=== PATIENT | female | born 1935 | race Caucasian/White ===

== ENCOUNTER 2017-08-08 11:19 | Inpatient (IN) | payer OTHER, MEDICAID, MEDICARE ==
[~2017-08-08] VITALS: Ht 167.6 cm; Wt 158.0 kg
[2017-08-08] VITALS (8 sets, daily range): BP systolic 118–151; BP diastolic 48–69; PULSE 51–72; RESP 18–26; TEMP 97–97.7; O2SAT 95–100
[~2017-08-08 11:19] MED LIST: ASPI-183 PO; FURO80TA PO; LISI10TA3 PO; LORA10TA PO
--- NOTE | 2017-08-08 12:12 | PD ---
HPI Chief Complaint: GI Complaint Time Seen by Provider: 11:41 Travel History International Travel<30 days: No Contact w/Intl Traveler<30days: No Traveled to known affect area: No History of Present Illness HPI 81-year-old female presents emergency department via [facility] for evaluation of dark , tarry stools with occasional bright red bleeding per rectum associated with lower abdominal pain that started approximately 4 days ago. Patient is coming from home in an older adult facility. Says that she has dark stools and when she wipes, has bright red blood on the toilet paper. Says she has lower abdominal pain bilaterally described as aching and "gas pain" without radiation. States the pain is mild to moderate. She has no history of this pain previously. Patient denies dizziness, lightheadedness, heart palpitations. Says in the last 4 days she has had some exertional chest pain associated with shortness of breath and radiation to the right arm and hand. Patient follows Dr. Medina and her last appointment was 1 year ago. Says she was prescribed nitro and a "vasodilator" but states she has not taken his vasodilator because she "does not think she needs it". She has a history of lymphedema, congestive heart failure. She uses oxygen 2 L/min 20 hours a day for COPD. PFSH Past Medical History Cardiovascular Problems: Yes Congestive Heart Failure: Yes COPD: Yes Hypertension: Yes Respiratory: Yes Integumentary: Yes (PSORIASIS) ?: Not Past Surgical History Section: Yes Hysterectomy: Yes Tonsillectomy: Yes Social History Alcohol Use: No Tobacco Use: No Substance Use: No Allergies-Medications (Allergen,Severity, Reaction): Coded Allergies: ciprofloxacin (Unverified Allergy, Mild, Blurred Vision, 12/27/16) monosodium glutamate (Unverified Allergy, Unknown, 12/27/16) Reported Meds & Prescriptions Reported Meds & Active Scripts Active Reported Aspirin 325 Mg Tab 325 Mg PO DAILY Lisinopril 10 Mg Tab 10 Mg PO DAILY Furosemide 80 Mg Tab 40 Mg PO DAILY Review of Systems Except as stated in HPI: all other systems reviewed are Neg Physical Exam Narrative GENERAL: Well developed, well-nourished no apparent distress SKIN: Focused skin assessment warm/dry. HEAD: Atraumatic. Normocephalic. EYES: Pupils equal and round. No scleral icterus. No injection or drainage. ENT: No nasal bleeding or discharge. Mucous membranes pink and moist. NECK: Trachea midline. No JVD. CARDIOVASCULAR: Regular rate and rhythm. No murmur appreciated. RESPIRATORY: No accessory muscle use. Clear to auscultation. Breath sounds equal bilaterally. GASTROINTESTINAL: Abdomen soft, non-tender, nondistended. Hepatic and splenic margins not palpable. MUSCULOSKELETAL: No obvious deformities. No clubbing. No cyanosis. No edema. NEUROLOGICAL: Awake and alert. No obvious cranial nerve deficits. Motor grossly within normal limits. Normal speech. PSYCHIATRIC: Appropriate mood and affect; insight and judgment normal. Data Data Last Documented VS Vital Signs Date Time Temp Pulse Resp B/P (MAP) Pulse Ox O2 Delivery O2 Flow Rate FiO2 08/08/17 14:50 97.7 53 20 132/58 08/08/17 14:29 100 Orders Orders Complete Blood Count With Diff (08/08/17 11:46) Comprehensive Metabolic Panel (08/08/17 11:46) Lipase (08/08/17 11:46) Prothrombin Time / Inr (Pt) (08/08/17 11:46) Act Partial Throm Time (Ptt) (08/08/17 11:46) Urinalysis - C+S If Indicated (08/08/17 11:46) Iv Access Insert/Monitor (08/08/17 11:46) Ecg Monitoring (08/08/17 11:46) Oximetry (08/08/17 11:46) Electrocardiogram (08/08/17 11:46) Ckmb (Isoenzyme) Profile (08/08/17 11:46) Troponin I (08/08/17 11:46) B-Type Natriuretic Peptide (08/08/17 11:46) Type And Screen (08/08/17 12:20) Red Blood Cells (Rbc) (08/08/17 12:30) Blood Product Administration (08/08/17 12:30) Sodium Chlor 0.9% 250 Ml Inj (Ns 250 Ml (08/08/17 12:30) Calcium Gluconate Inj (Calcium Gluconate (08/08/17 13:15) Sodium Chlor 0.9% 1000 Ml Inj (Ns 1000 M (08/08/17 13:15) Ct Abd/Pel W/O Iv Contrast (08/08/17 ) Urine Culture (08/08/17 12:50) Chest, Single Ap (08/08/17 ) Sodium Polysty Sulfate Liq (Kayexalate L (08/08/17 15:15) Admit Order (Ed Use Only) (08/08/17 ) Admit To Inpatient (08/08/17 ) Vital Signs (Adult) Q4H (08/08/17 15:03) Activity Oob With Assistance (08/08/17 15:03) Body Stylist / Telemetry .CONTINUOUS (08/08/17 15:03) Sodium Chloride 0.9% Flush (Ns Flush) (08/08/17 15:15) Sodium Chloride 0.9% Flush (Ns Flush) (08/08/17 21:00) Basic Metabolic Panel (Bmp) (08/09/17 06:00) Complete Blood Count With Diff (08/09/17 06:00) Pt Request For Service (08/08/17 15:03) Case Management Consult (08/08/17 15:03) Naloxone Inj (Narcan Inj) (08/08/17 15:15) Inpatient Certification (08/08/17 ) Labs Laboratory Tests Test 08/08/17 12:06 08/08/17 12:50 White Blood Count 4.8 TH/MM3 Red Blood Count 2.16 MIL/MM3 Hemoglobin 5.4 GM/DL Hematocrit 17.3 % Mean Corpuscular Volume 80.1 FL Mean Corpuscular Hemoglobin 25.2 PG Mean Corpuscular Hemoglobin Concent 31.4 % Red Cell Distribution Width 21.9 % Platelet Count 128 TH/MM3 Mean Platelet Volume 9.1 FL Neutrophils (%) (Auto) 50.8 % Lymphocytes (%) (Auto) 31.5 % Monocytes (%) (Auto) 13.2 % Eosinophils (%) (Auto) 3.2 % Basophils (%) (Auto) 1.3 % Neutrophils # (Auto) 2.4 TH/MM3 Lymphocytes # (Auto) 1.5 TH/MM3 Monocytes # (Auto) 0.6 TH/MM3 Eosinophils # (Auto) 0.2 TH/MM3 Basophils # (Auto) 0.1 TH/MM3 CBC Comment DIFF FINAL Differential Comment Prothrombin Time 14.7 SEC Prothromb Time International Ratio 1.5 RATIO Activated Partial Thromboplast Time 33.9 SEC Blood Urea Nitrogen 67 MG/DL Creatinine 2.45 MG/DL Random Glucose 105 MG/DL Total Protein 7.9 GM/DL Albumin 2.7 GM/DL Calcium Level 8.9 MG/DL Alkaline Phosphatase 168 U/L Aspartate Amino Transf (AST/SGOT) 26 U/L Alanine Aminotransferase (ALT/SGPT) 13 U/L Total Bilirubin 0.6 MG/DL Sodium Level 141 MEQ/L Potassium Level 6.1 MEQ/L Chloride Level 110 MEQ/L Carbon Dioxide Level 23.1 MEQ/L Anion Gap 8 MEQ/L Estimat Glomerular Filtration Rate 19 ML/MIN Total Creatine Kinase 36 U/L Troponin I 0.02 NG/ML B-Type Natriuretic Peptide 355 PG/ML Lipase 172 U/L Urine Color YELLOW Urine Turbidity HAZY Urine pH 5.5 Urine Specific [place] 1.011 Urine Protein TRACE mg/dL Urine Glucose (UA) NEG mg/dL Urine Ketones NEG mg/dL Urine Occult Blood LARGE Urine Nitrite NEG Urine Bilirubin NEG Urine Urobilinogen LESS THAN 2.0 MG/DL Urine Leukocyte Esterase NEG Urine RBC 2 /hpf Urine WBC 1 /hpf Urine Squamous Epithelial Cells 2 /hpf Urine Amorphous Sediment OCC Urine Bacteria MOD /hpf Urine Hyaline Casts 12 /lpf Urine Mucus FEW /lpf Microscopic Urinalysis Comment CULTURE INDICATED MDM Medical Decision Making Medical Screen Exam Complete: Yes Emergency Medical Condition: Yes Differential Diagnosis Diverticulitis, peptic ulcer disease, diverticulosis, medication noncompliance, rectal bleeding Narrative Course 81-year-old female presents emergency department for evaluation of melena and hematochezia for approximately 4 days. She says she believes this started because of medication that she started approximately 2 weeks ago. States that she only took about 7 days of this medication because she had some melena at that time. Says the day after she stopped this medication her stools turn normal again. Says that she had the bleeding began again 4 days ago. Her son, Fausto assisted with a history. States she has chronic chest pain, followed by her PCP and cardiology. She does not take her isosorbide or nitro as recommended. Says she is followed by nephrology for her anemia and there was mention of a 'blood cancer'. Her chief mechanical officer is Dr. Acosta. Her bioinformatics research technician is Dr. Medina. Her primary care physician is Dr. Pineda with [facility]. EKG shows bradycardia without STEMI changes. Previous EKG in 2016 with bradycardia with A fib. Labs are significant for H/H5 5.4/17.3, significantly decreased since the labs in 2016 Potassium 6.1 BUN/creatinine 67/2.45, increased since labs in 2016 from baseline 45/1.5 Negative troponin. BNP 355, increased from 104. INR 1.5. Note that patient is not on Coumadin or any other anticoagulants. Calcium gluconate 1gm for hyperkalemia. 1L NS IVF bolus. 2 units PRBCs for correction of anemia. Pt had a BM in the ED that was dark red blood. No obvious stool present. Rectal exam deferred for concern of worsening bleeding. Anal exam shows external hemorrhoids without obvious bleeding or thrombosis. I spoke with Dr. Duran who recommended EGD and colonoscopy tomorrow. Prep today. Will admit for severe anemia with melena and hematochezia. Consult nephrology. Consider hematology consult. Diagnosis Primary Impression: Severe anemia Additional Impressions: Hematochezia Thrombocytopenia Nonadherence to medication Admitting Information Admitting Physician Requests: Admit Condition: Stable Jody Hernandez Aug 08, 2017 12:12
[2017-08-08 12:24] LABS: AUTOMATED NEUTROPHIL # 2.4 TH/MM3 (1.8-7.7); BASOPHIL # 0.1 TH/MM3 (0-0.2); BASOPHIL % 1.3 % (0.0-2.0); EOSINOPHIL # 0.2 TH/MM3 (0-0.4); EOSINOPHIL % 3.2 % (0.0-4.0); LYMPH % 31.5 % (9.0-44.0); LYMPHOCYTE # 1.5 TH/MM3 (1.0-4.8); MEAN CELL VOLUME 80.1 FL (80.0-100.0); MEAN CORPUSCULAR HEMOGLOBIN 25.2 PG (27.0-34.0); MEAN CORPUSCULAR HGB CONC 31.4 % (32.0-36.0); MEAN PLATELET VOLUME 9.1 FL (7.0-11.0); MONO % 13.2 % (0.0-8.0); MONOCYTE # 0.6 TH/MM3 (0-0.9); NEUT % 50.8 % (16.0-70.0); PLATELET COUNT 128 TH/MM3 (150-450); RED BLOOD COUNT 2.16 MIL/MM3 (4.00-5.30); RED CELL DISTRIBUTION WIDTH 21.9 % (11.6-17.2); WHITE BLOOD COUNT 4.8 TH/MM3 (4.0-11.0)
[2017-08-08 12:27] LABS: HEMATOCRIT 17.3 % (35.0-46.0); HEMOGLOBIN 5.4 GM/DL (11.6-15.3)
[2017-08-08] MEDS ORDERED: SODIUM CHLOR 0.9% 250 ML INJ 250 ML IV ONE (12:30)
--- NOTE | 2017-08-08 12:32 | PD ---
Data Data Last Documented VS Vital Signs Date Time Temp Pulse Resp B/P (MAP) Pulse Ox O2 Delivery O2 Flow Rate FiO2 08/08/17 14:50 97.7 53 20 132/58 08/08/17 14:29 100 Orders Orders Complete Blood Count With Diff (08/08/17 11:46) Comprehensive Metabolic Panel (08/08/17 11:46) Lipase (08/08/17 11:46) Prothrombin Time / Inr (Pt) (08/08/17 11:46) Act Partial Throm Time (Ptt) (08/08/17 11:46) Urinalysis - C+S If Indicated (08/08/17 11:46) Iv Access Insert/Monitor (08/08/17 11:46) Ecg Monitoring (08/08/17 11:46) Oximetry (08/08/17 11:46) Electrocardiogram (08/08/17 11:46) Ckmb (Isoenzyme) Profile (08/08/17 11:46) Troponin I (08/08/17 11:46) B-Type Natriuretic Peptide (08/08/17 11:46) Type And Screen (08/08/17 12:20) B-Type Natriuretic Peptide (08/08/17 12:30) Red Blood Cells (Rbc) (08/08/17 12:30) Blood Product Administration (08/08/17 12:30) Sodium Chlor 0.9% 250 Ml Inj (Ns 250 Ml (08/08/17 12:30) Calcium Gluconate Inj (Calcium Gluconate (08/08/17 13:15) Sodium Chlor 0.9% 1000 Ml Inj (Ns 1000 M (08/08/17 13:15) Ct Abd/Pel W/O Iv Contrast (08/08/17 ) Urine Culture (08/08/17 12:50) Chest, Single Ap (08/08/17 ) Sodium Polysty Sulfate Liq (Kayexalate L (08/08/17 15:15) Admit Order (Ed Use Only) (08/08/17 ) Admit To Inpatient (08/08/17 ) Vital Signs (Adult) Q4H (08/08/17 15:03) Activity Oob With Assistance (08/08/17 15:03) Ict Trainer / Telemetry .CONTINUOUS (08/08/17 15:03) Sodium Chloride 0.9% Flush (Ns Flush) (08/08/17 15:15) Sodium Chloride 0.9% Flush (Ns Flush) (08/08/17 21:00) Basic Metabolic Panel (Bmp) (08/09/17 06:00) Complete Blood Count With Diff (08/09/17 06:00) Pt Request For Service (08/08/17 15:03) Case Management Consult (08/08/17 15:03) Naloxone Inj (Narcan Inj) (08/08/17 15:15) Inpatient Certification (08/08/17 ) Labs Laboratory Tests Test 08/08/17 12:06 08/08/17 12:50 White Blood Count 4.8 TH/MM3 Red Blood Count 2.16 MIL/MM3 Hemoglobin 5.4 GM/DL Hematocrit 17.3 % Mean Corpuscular Volume 80.1 FL Mean Corpuscular Hemoglobin 25.2 PG Mean Corpuscular Hemoglobin Concent 31.4 % Red Cell Distribution Width 21.9 % Platelet Count 128 TH/MM3 Mean Platelet Volume 9.1 FL Neutrophils (%) (Auto) 50.8 % Lymphocytes (%) (Auto) 31.5 % Monocytes (%) (Auto) 13.2 % Eosinophils (%) (Auto) 3.2 % Basophils (%) (Auto) 1.3 % Neutrophils # (Auto) 2.4 TH/MM3 Lymphocytes # (Auto) 1.5 TH/MM3 Monocytes # (Auto) 0.6 TH/MM3 Eosinophils # (Auto) 0.2 TH/MM3 Basophils # (Auto) 0.1 TH/MM3 CBC Comment DIFF FINAL Differential Comment Prothrombin Time 14.7 SEC Prothromb Time International Ratio 1.5 RATIO Activated Partial Thromboplast Time 33.9 SEC Blood Urea Nitrogen 67 MG/DL Creatinine 2.45 MG/DL Random Glucose 105 MG/DL Total Protein 7.9 GM/DL Albumin 2.7 GM/DL Calcium Level 8.9 MG/DL Alkaline Phosphatase 168 U/L Aspartate Amino Transf (AST/SGOT) 26 U/L Alanine Aminotransferase (ALT/SGPT) 13 U/L Total Bilirubin 0.6 MG/DL Sodium Level 141 MEQ/L Potassium Level 6.1 MEQ/L Chloride Level 110 MEQ/L Carbon Dioxide Level 23.1 MEQ/L Anion Gap 8 MEQ/L Estimat Glomerular Filtration Rate 19 ML/MIN Total Creatine Kinase 36 U/L Troponin I 0.02 NG/ML B-Type Natriuretic Peptide 355 PG/ML Lipase 172 U/L Urine Color YELLOW Urine Turbidity HAZY Urine pH 5.5 Urine Specific [place] 1.011 Urine Protein TRACE mg/dL Urine Glucose (UA) NEG mg/dL Urine Ketones NEG mg/dL Urine Occult Blood LARGE Urine Nitrite NEG Urine Bilirubin NEG Urine Urobilinogen LESS THAN 2.0 MG/DL Urine Leukocyte Esterase NEG Urine RBC 2 /hpf Urine WBC 1 /hpf Urine Squamous Epithelial Cells 2 /hpf Urine Amorphous Sediment OCC Urine Bacteria MOD /hpf Urine Hyaline Casts 12 /lpf Urine Mucus FEW /lpf Microscopic Urinalysis Comment CULTURE INDICATED MDM Supervised Visit with RAFFI: Yes Narrative Course I, Dr. Milner, have reviewed the advance practice practitioner's documentation and am in agreement, met with the patient face to face, made the diagnosis, and the medical decision making was done by me. *My assessment and Findings: Patient seen and examined by me in addition to Jody Hernandez, this is an 81-year-old female who looks extremely pale to me, as confirmed by hemoglobin testing of 5.4, I discussed the risk benefits competitions and alternatives of blood transfusion with her and she is agreeable for blood transfusion. Will be discussed with GI on-call as well as her supervisor instrument mechanics. Her potassium is running some higher may be due to some GI lysis. She will be given calcium chloride, liter of normal saline and I have suggested to the hospitalist that her potassium be repeated sometime this afternoon. Will hold insulin D50 therapy and Kayexalate therapy until discussing with consultants. There are no EKG changes consistent with hyperkalemia Diagnosis Primary Impression: Severe anemia Additional Impressions: Hematochezia Acute kidney injury Hyperkalemia Admitting Information Admitting Physician Requests: Admit Condition: Fausto Valerio MD Aug 08, 2017 12:32
[2017-08-08 12:33] LABS: PROTHROMBIN TIME - PATIENT 14.7 SEC (9.8-11.6)
[2017-08-08 12:34] LABS: INTERNATIONAL NORMALIZED RATIO 1.5 RATIO
[2017-08-08 12:51] LABS: ALBUMIN 2.7 GM/DL (3.4-5.0); AST (GOT) 26 U/L (15-37); BICARBONATE 23.1 MEQ/L (21.0-32.0); BLOOD UREA NITROGEN 67 MG/DL (7-18); CALCIUM 8.9 MG/DL (8.5-10.1); CHLORIDE 110 MEQ/L (98-107); CREATININE 2.45 MG/DL (0.50-1.00); GLOMERULAR FILTRATION RATE 19 ML/MIN (>89); GLUCOSE,RANDOM 105 MG/DL (74-106); SODIUM (NA) 141 MEQ/L (136-145)
[2017-08-08 12:56] LABS: ALKALINE PHOSPHATASE 168 U/L (45-117); ALT (GPT) 13 U/L (10-53); TOTAL BILIRUBIN ADULT 0.6 MG/DL (0.2-1.0); TOTAL PROTEIN 7.9 GM/DL (6.4-8.2); TROPONIN I 0.02 NG/ML (0.02-0.05)
[2017-08-08] MEDS ORDERED: CALCIUM GLUCONATE 10% 1 GM/10 ML VIAL IV PUSH ONE (13:15)
[2017-08-08] MEDS ORDERED: SODIUM CHLOR 0.9% 1000 ML INJ 1,000 ML IV ONE (13:15)
[2017-08-08 13:32] LABS: AMORPHOUS SEDIMENT, URINE OCC; BACTERIA, URINE MOD /hpf; BILIRUBIN, URINE NEG (NEG); BLOOD, URINE LARGE (NEG); GLUCOSE,URINE NEG (NEG); HYALINE CAST, URINE 12 /lpf (RARE); KETONE, URINE NEG (NEG); MUCUS URINE FEW /lpf (OCC); NITRITE,URINE NEG (NEG); PH, URINE 5.5 (5.0-8.5); SQUAMOUS EPITHELIAL CELL URINE 2 /hpf (0-5); URINE COLOR YELLOW (YELLW/STRAW); URINE LEUKOCYTE ESTERASE NEG (NEG)
--- NOTE | 2017-08-08 14:34 | RADRPT ---
EXAM DATE/TIME: 08/08/2017 13:56 [facility] COMPARISON: No previous studies available for comparison. INDICATIONS : Lower abdominal pain. Hematochezia ORAL CONTRAST: No oral contrast ingested. RADIATION DOSE: 33.33 CTDIvol (mGy) ; Patient body habitus MEDICAL HISTORY : Cardiovascular disease. Chronic obstructive pulmonary disease. Hypertension. SURGICAL HISTORY : Hysterectomy. ENCOUNTER: Initial ACUITY: 4 - 6 days PAIN SCALE: 4/10 LOCATION: Bilateral lower quadrant TECHNIQUE: Volumetric scanning of the abdomen and pelvis was performed. Using automated exposure control and ad justment of the mA and/or kV according to patient size, radiation dose was kept as low as reasonably achievable to obtain optimal diagnostic quality images. DICOM format image data is available electro nically for review and comparison. FINDINGS: LOWER LUNGS: The visualized lower lungs are clear. LIVER: Homogeneous density without lesion. There is no dilation of the biliary tree. Small calcified gallst one in a mildly distended gallbladder is noted. There is no wall thickening or pericholecystic fluid. SPLEEN: Normal size without lesion. PANCREAS: Within normal limits. KIDNEYS: Normal in size and shape. There is no mass, stone, or hydronephrosis. ADRENAL GLANDS: Within normal limits. VASCULAR: There is no aortic aneurysm. BOWEL/MESENTERY: The stomach, small bowel, and colon demonstrate no acute abnormality. There is no free intraperitone al air or fluid. ABDOMINAL WALL: Within normal limits. RETROPERITONEUM: There is no lymphadenopathy. BLADDER: No wall thickening or mass. REPRODUCTIVE: Uterus has been removed. There are no pelvic or adnexal masses. INGUINAL: There is no lymphadenopathy or hernia. MUSCULOSKELETAL: Within normal limits for patient age. CONCLUSION: 1. Calcified gallstone. 2. Status post hysterectomy. 3. No evidence of acute process. 4. No evidence of mass or lymphadenopathy. Rico John MD on August 08, 2017 at 14:27 Board Certified Radiologist. This report was verified electronically.
[2017-08-08] MEDS ORDERED: NALOXONE HCL 0.4 MG/ML AMP IV PUSH PRN (15:15)
[2017-08-08] MEDS ORDERED: SODIUM CHLORIDE 0.9% FLUSH 10 ML FLUSH IV FLUSH PRN (15:15)
[2017-08-08] MEDS ORDERED: SODIUM POLYSTYRENE SULFONATE SUSP 15 GM/60 ML CUP PO ONE (15:15)
--- NOTE | 2017-08-08 15:19 | RADRPT ---
EXAM DATE/TIME: 08/08/2017 14:44 [facility] COMPARISON: CHEST SINGLE AP, April 22, 2016, 18:13. INDICATIONS : Chest pain, chronic, anemia. Patient states she has had blood in stool. MEDICAL HISTORY : Cardiovascular disease. Chronic obstructive pulmonary disease. Congestive Heart Failure. SURGICAL HISTORY : section. ENCOUNTER: Initial ACUITY: 4 - 6 days PAIN SCORE: 0/10 LOCATION: Bilateral chest FINDINGS: A single view of the chest demonstrates moderate cardiomegaly. Increased prominence of the interstiti al vascular markings is noted compared to prior study. There is no evidence of consolidating airspace disease, pulmonary masses or effusions. CONCLUSION: 1. Moderate cardiomegaly with vascular congestive changes. 2. No evidence of acute airspace disease. Rcio John MD on August 08, 2017 at 15:15 Board Certified Radiologist. This report was verified electronically.
--- NOTE | 2017-08-08 15:36 | PD.CONS ---
HPI History of Present Illness This is a 81 year old F with PMH significant for lymphedema and HTN. Pt presented to the ER earlier today with complaints of weakness and rectal bleeding. States she initially began having dark, tarry stools almost a week ago and then 4 days ago stools switched to have dark red blood with clots in it. Reports 3-4 episodes a day. Associated with mild mid abdominal cramping, intermittent. Denies any nausea or emesis. Reports acid reflux has been worse for the past month, mostly dependent on the foods she eats, denies taking any OTC or prescription medications for this. Denies dysphagia, odynophagia. States weight seems to fluctuate dependent on her lymphedema but denies significant weight loss recently. Takes a daily full dose ASA. Denies any other blood thinners or OTC NSAIDs. Denies ETOH, smoking. Has never had EGD or colonoscopy. (Jo Ayala) PFSH Past Medical History Lymphedema HTN Past Surgical History Tonsillectomy Urethra surgery Hysterectomy (Jo Ayala) Coded Allergies: ciprofloxacin (Unverified Allergy, Mild, Blurred Vision, 12/27/16) monosodium glutamate (Unverified Allergy, Unknown, 12/27/16) Social History Denies ETOH Denies smoking (Jo Ayala) Review of Systems Gastrointestinal: COMPLAINS OF: Abdominal pain, Black stools, Bloody stools, Diarrhea, Heartburn, DENIES: Constipation, Nausea, Vomiting, Difficulty Swallowing, Anorexia, Odynophagia, Swelling of Abdomen, Hematemesis (Jo Ayala) GI Exam Vitals I&O Vital Signs Date Time Temp Pulse Resp B/P (MAP) Pulse Ox O2 Delivery O2 Flow Rate FiO2 08/08/17 14:50 97.7 53 20 132/58 08/08/17 14:29 97.6 55 22 134/69 100 08/08/17 11:44 72 26 118/48 (71) 95 Laboratory Test 08/08/17 12:06 08/08/17 12:50 White Blood Count 4.8 TH/MM3 Red Blood Count 2.16 MIL/MM3 Hemoglobin 5.4 GM/DL Hematocrit 17.3 % Mean Corpuscular Volume 80.1 FL Mean Corpuscular Hemoglobin 25.2 PG Mean Corpuscular Hemoglobin Concent 31.4 % Red Cell Distribution Width 21.9 % Platelet Count 128 TH/MM3 Mean Platelet Volume 9.1 FL Neutrophils (%) (Auto) 50.8 % Lymphocytes (%) (Auto) 31.5 % Monocytes (%) (Auto) 13.2 % Eosinophils (%) (Auto) 3.2 % Basophils (%) (Auto) 1.3 % Neutrophils # (Auto) 2.4 TH/MM3 Lymphocytes # (Auto) 1.5 TH/MM3 Monocytes # (Auto) 0.6 TH/MM3 Eosinophils # (Auto) 0.2 TH/MM3 Basophils # (Auto) 0.1 TH/MM3 CBC Comment DIFF FINAL Differential Comment Prothrombin Time 14.7 SEC Prothromb Time International Ratio 1.5 RATIO Activated Partial Thromboplast Time 33.9 SEC Blood Urea Nitrogen 67 MG/DL Creatinine 2.45 MG/DL Random Glucose 105 MG/DL Total Protein 7.9 GM/DL Albumin 2.7 GM/DL Calcium Level 8.9 MG/DL Alkaline Phosphatase 168 U/L Aspartate Amino Transf (AST/SGOT) 26 U/L Alanine Aminotransferase (ALT/SGPT) 13 U/L Total Bilirubin 0.6 MG/DL Sodium Level 141 MEQ/L Potassium Level 6.1 MEQ/L Chloride Level 110 MEQ/L Carbon Dioxide Level 23.1 MEQ/L Anion Gap 8 MEQ/L Estimat Glomerular Filtration Rate 19 ML/MIN Total Creatine Kinase 36 U/L Troponin I 0.02 NG/ML B-Type Natriuretic Peptide 355 PG/ML Lipase 172 U/L Urine Color YELLOW Urine Turbidity HAZY Urine pH 5.5 Urine Specific [place] 1.011 Urine Protein TRACE mg/dL Urine Glucose (UA) NEG mg/dL Urine Ketones NEG mg/dL Urine Occult Blood LARGE Urine Nitrite NEG Urine Bilirubin NEG Urine Urobilinogen LESS THAN 2.0 MG/DL Urine Leukocyte Esterase NEG Urine RBC 2 /hpf Urine WBC 1 /hpf Urine Squamous Epithelial Cells 2 /hpf Urine Amorphous Sediment OCC Urine Bacteria MOD /hpf Urine Hyaline Casts 12 /lpf Urine Mucus FEW /lpf Microscopic Urinalysis Comment CULTURE INDICATED Date/Time Source Procedure Growth Status 08/08/17 12:50 Urine Random Urine Urine Culture Pending Received Physical Examination HEENT: Normocephalic; atraumatic CHEST: Even/unlabored CARDIAC: Sinus bradycardia ABDOMEN: Round, soft, mild mid abdominal TTP, bowel sounds active SKIN: Normal; no rash; no jaundice. SUPERVISOR CONTINGENTS: No focal deficits; alert and oriented times three. (Jo Ayala) Assessment and Plan Plan Assessment: - GIB- reports of melena that started about a week ago that turned into dark red blood in her stool with clots approx 4 days ago. 3-4 episodes a day, last BM while in ER. H/H 5.4/17.3 on admission, 2 U PRBCs ordered. Denies ever having EGD or colonoscopy. Denies history of GIB, NSAIDs, ETOH. Takes full dose ASA daily. - Mild mid abdominal pain, intermittent- CT abdomen and pelvis (08/08) --> Calcified gallstone. Status post hysterectomy. No evidence of acute process. No evidence of mass or lymphadenopathy. - Sinus bradycardia- pt reports her heart rate always runs low - Lymphedema with fluctuating weight- denies recent weight loss - FLOWER- GFR 19 with hyperkalemia- per attneding Plan: EGD/colonoscopy tomorrow Obtain consent Clear liquids today GoLytely prep NPO after MN Protonix gtt Serial H/H- q6hr Transfuse to keep hgb over 8 IVF Further recommendations based on findings of above Pt has been seen and examined by myself and Dr. Duran and this note is written on his behalf (Jo Ayala) Physician Comments Patient seen and examined Agree with above Continue with current supportive care Monitor labs Plan for an EGD and colonoscopy tomorrow (Matt Duran MD) Jo Ayala Aug 08, 2017 15:36 Matt Duran MD Aug 08, 2017 21:57
--- NOTE | 2017-08-08 16:20 | HHI.HP ---
HPI Service [facility] Primary Care Physician Unknown Admission Diagnosis GI bleed, Anemia, FLOWER, Hyperkalemia Diagnoses: Travel History International Travel<30 Days: No Contact w/Intl Traveler <30 Da: No Traveled to Known Affected Are: No History of Present Illness History from patient, your physician for medication, interview of medical records. Patient stated that for the past 4 days, she has been having chest pains on and off. Reports is associated dizziness although she did not pass out. She did have black stools for 4 days as well. Reports of dyspnea because of this. Denies diarrhea. She states that the black stools and became almost of clots. She reports that because of all this, she finally decided to come to hospital today and called 911 herself. patient's ER nurse at the bedside reported that patient had episode of bright red blood per rectum just about to 3 hours ago while in ER. She denies any prior colonoscopies. Review of systems: Patient reports of nausea the past one week or so. She thought that this was secondary to spironolactone that she was taking. She also thought that she had episodes of black stools about a week ago which may be related to spironolactone and therefore stopped it at that time. She says that she chokes easily this has been going on for a while In the emergency room, her workup reveals hemoglobin of 5.4. Review of Systems Except as stated in HPI: all other systems reviewed are Neg Past Family Social History Past Medical History Lymphedema HTN CHF- per pt, doctor in [place] told her that once due to swelling in her legs ; but was told by Dr Medina that she does not, and had echo as well COPD CKD- sees Dr Acosta hx of RLE DVT - used to be on coumadin- about 8-10yrs ago Cervical cancer- s/p removal Squamous cell of skin on knee- s/p resection Past Surgical History Tonsillectomy Urethra surgery for stricture Hysterectomy Allergies: Coded Allergies: ciprofloxacin (Unverified Allergy, Mild, Blurred Vision, 12/27/16) monosodium glutamate (Unverified Allergy, Unknown, 12/27/16) Family History son- cad s/p stent youngest son- doesnt know much about his history Social History Denies ETOH- quit mar 03, 1980- but was just a social drinker Denies smoking - quit october 22 1984 mostly home bound, bed bound, only walks to bathroom , lives alone havent driven in years Physical Exam Vital Signs Vital Signs Date Time Temp Pulse Resp B/P (MAP) Pulse Ox O2 Delivery O2 Flow Rate FiO2 08/08/17 16:03 97.6 51 22 151/55 08/08/17 14:50 97.7 53 20 132/58 08/08/17 14:29 97.6 55 22 134/69 100 08/08/17 11:44 72 26 118/48 (71) 95 Physical Exam GENERAL: This is a well-nourished, well-developed patient, in no apparent distress. SKIN: No rashes, ecchymoses or lesions. Cool and dry. Pallor present HEAD: Atraumatic. Normocephalic. No temporal or scalp tenderness. EYES: No scleral icterus. No injection or drainage. ENT: Nose without bleeding, purulent drainage or septal hematoma.. Airway patent. NECK: Trachea midline. No JVD Supple, nontender, no meningeal signs. CARDIOVASCULAR: Regular rate and rhythm without murmurs, gallops, or rubs. RESPIRATORY: Clear to auscultation. Breath sounds equal bilaterally. No wheezes , rales, or rhonchi. GASTROINTESTINAL: Abdomen soft, non-tender, nondistended. No guarding. MUSCULOSKELETAL: Extremities without clubbing, cyanosis, or edema. No calf tenderness NEUROLOGICAL: Awake and alert. Motor and sensory grossly within normal limits. Normal speech. Laboratory Laboratory Tests Test 08/08/17 12:06 08/08/17 12:50 White Blood Count 4.8 Red Blood Count 2.16 Hemoglobin 5.4 Hematocrit 17.3 Mean Corpuscular Volume 80.1 Mean Corpuscular Hemoglobin 25.2 Mean Corpuscular Hemoglobin Concent 31.4 Red Cell Distribution Width 21.9 Platelet Count 128 Mean Platelet Volume 9.1 Neutrophils (%) (Auto) 50.8 Lymphocytes (%) (Auto) 31.5 Monocytes (%) (Auto) 13.2 Eosinophils (%) (Auto) 3.2 Basophils (%) (Auto) 1.3 Neutrophils # (Auto) 2.4 Lymphocytes # (Auto) 1.5 Monocytes # (Auto) 0.6 Eosinophils # (Auto) 0.2 Basophils # (Auto) 0.1 CBC Comment DIFF FINAL Differential Comment Prothrombin Time 14.7 Prothromb Time International Ratio 1.5 Activated Partial Thromboplast Time 33.9 Blood Urea Nitrogen 67 Creatinine 2.45 Random Glucose 105 Total Protein 7.9 Albumin 2.7 Calcium Level 8.9 Alkaline Phosphatase 168 Aspartate Amino Transf (AST/SGOT) 26 Alanine Aminotransferase (ALT/SGPT) 13 Total Bilirubin 0.6 Sodium Level 141 Potassium Level 6.1 Chloride Level 110 Carbon Dioxide Level 23.1 Anion Gap 8 Estimat Glomerular Filtration Rate 19 Total Creatine Kinase 36 Troponin I 0.02 B-Type Natriuretic Peptide 355 Lipase 172 Urine Color YELLOW Urine Turbidity HAZY Urine pH 5.5 Urine Specific Mcfarland 1.011 Urine Protein TRACE Urine Glucose (UA) NEG Urine Ketones NEG Urine Occult Blood LARGE Urine Nitrite NEG Urine Bilirubin NEG Urine Urobilinogen LESS THAN 2.0 Urine Leukocyte Esterase NEG Urine RBC 2 Urine WBC 1 Urine Squamous Epithelial Cells 2 Urine Amorphous Sediment OCC Urine Bacteria MOD Urine Hyaline Casts 12 Urine Mucus FEW Microscopic Urinalysis Comment CULTURE INDICATED Date/Time Source Procedure Growth Status 08/08/17 12:50 Urine Random Urine Urine Culture Pending Received Result Diagram: 08/08/17 1206 08/08/17 1206 Imaging Last 48 hours Impressions Chest X-Ray 08/08/17 0000 Signed Impressions: Service Date/Time: Tuesday, August 08, 2017 14:44 - CONCLUSION: 1. Moderate cardiomegaly with vascular congestive changes. 2. No evidence of acute airspace disease. Rico John MD Abdomen/Pelvis CT 08/08/17 0000 Signed Impressions: Service Date/Time: Tuesday, August 08, 2017 13:56 - CONCLUSION: 1. Calcified gallstone. 2. Status post hysterectomy. 3. No evidence of acute process. 4. No evidence of mass or lymphadenopathy. MD Rin Bowseri VTE Risk Assessment Josefina VTE Risk Assessment: Mod/High Risk (score >= 2) Caprini Risk Assessment Model Point Value = 1 Point Value = 2 Point Value = 3 Point Value = 5 Age 41-60 Minor surgery BMI > 25 kg/m2 Swollen legs Varicose veins or History of unexplained or recurrent spontaneous Oral contraceptives or hormone replacement Sepsis (< 1 month) Serious lung disease, including pneumonia (< 1 month) Abnormal pulmonary function Acute myocardial infarction Congestive heart failure (< 1 month) History of inflammatory bowel disease Medical patient at bed rest Age 61-74 Arthroscopic surgery Major open surgery (> 45 min) Laparoscopic surgery (> 45 min) Malignancy Confined to bed (> 72 hours) Immobilizing plaster cast Central venous access Age >= 75 History of VTE Family history of VTE Factor V Leiden Prothrombin [id number] Lupus anticoagulant Anticardiolipin antibodies Elevated serum homocysteine Heparin-induced thrombocytopenia Other congenital or acquired thrombophilia Stroke (< 1 month) Elective arthroplasty Hip, pelvis, or leg fracture Acute spinal cord injury (< 1 month) Prophylaxis Regimen Total Risk Factor Score Risk Level Prophylaxis Regimen 0-1 Low Early ambulation 2 Moderate Order ONE of the following: *Sequential Compression Device (SCD) *Heparin 5000 units SQ BID 3-4 Higher Order ONE of the following medications: *Heparin 5000 units SQ TID *Enoxaparin/Lovenox 40 mg SQ daily (WT < 150 kg, CrCl > 30 mL/min) *Enoxaparin/Lovenox 30 mg SQ daily (WT < 150 kg, CrCl > 10-29 mL/min) *Enoxaparin/Lovenox 30 mg SQ BID (WT < 150 kg, CrCl > 30 mL/min) AND/OR *Sequential Compression Device (SCD) 5 or more Highest Order ONE of the following medications: *Heparin 5000 units SQ TID (Preferred with Epidurals) *Enoxaparin/Lovenox 40 mg SQ daily (WT < 150 kg, CrCl > 30 mL/min) *Enoxaparin/Lovenox 30 mg SQ daily (WT < 150 kg, CrCl > 10-29 mL/min) *Enoxaparin/Lovenox 30 mg SQ BID (WT < 150 kg, CrCl > 30 mL/min) AND *Sequential Compression Device (SCD) Assessment and Plan Assessment and Plan Impression: Acute blood loss anemia. Upper GI bleed. Possible lower GI bleed Hyperkalemia Chronic Lymphedema HTN CHF- per pt, doctor in [place] told her that once due to swelling in her legs ; but was told by Dr Medina that she does not, and had echo as well COPD CKD- sees Dr Acosta hx of RLE DVT - used to be on coumadin- about 8-10yrs ago Cervical cancer- s/p removal Squamous cell of skin on knee- s/p resection Plan: Protonix IV drip. transfuse 2 units of PRBC. Transfuse second unit over 4 hours. Watch for ongoing episodes of bleeding/blood clots. Her last episode was about to 3 hours ago while in emergency room. Keep patient nothing by mouth. If there is any active bleed, to inform GI. There is a possibility that patient may have diverticular bleed as patient was also having bright red blood per rectum until it initially started out with black tarry stool. GI consult. Watch for fluid overload. As to her hyperkalemia, patient was given Kayexalate/calcium gluconate We'll repeat labs. Expect the patient will be having diarrhea overnight due to GoLYTELY. Hold blood thinners. Resume rest of her home meds. DVT prophylaxis with SCD. GI prophylaxis on pantoprazole. Discussed Condition With patient, ER Physician Certification 2 Midnight Certification Type: Admission for Inpatient Services Order for Inpatient Services The services are ordered in accordance with Medicare regulations or non- Medicare payer requirements, as applicable. In the case of services not specified as inpatient-only, they are appropriately provided as inpatient services in accordance with the 2-midnight benchmark. Estimated LOS (days): 4 days is the estimated time the patient will need to remain in the hospital, assuming treatment plan goals are met and no additional complications. Post-Hospital Plan: Not yet determined Shin Anne MD Aug 08, 2017 16:20
[2017-08-08] MEDS ORDERED: PEG (High)/E-LYTE SOLN 4000 ML BTL PO ONE (17:00)
[2017-08-08] MEDS: PANTOPRAZOLE INJ 80 MG in SODIUM CHLORIDE 0.9% INJ 100 ML IV SCH (17:31)
[2017-08-08] MEDS: SODIUM CHLORIDE 0.9% FLUSH 10 ML FLUSH IV FLUSH SCH (20:49)
[2017-08-08] MEDS ORDERED: CHLORHEXIDINE GLUCONATE 2 % 1 PACK (2 CLOTHS) TOPICAL PRN (21:30)
[2017-08-08] MEDS ORDERED: SODIUM CHLORID 0.9% 500 ML IV PRN (21:30)
[2017-08-08] MEDS ORDERED: LACTATED RINGER'S 1000 ML IV PRN (21:30)
[2017-08-08] MEDS ORDERED: POVIDONE IODINE 5% (ANTISEPSIS KIT) 4 APPLICATIONS EACH NARE PRN (21:30)
[2017-08-08] MEDS ORDERED: METOPROLOL TARTRATE 25 MG TAB PO PRN (21:30)
[2017-08-08 22:24] LABS: HEMATOCRIT 22.3 % (35.0-46.0); HEMOGLOBIN 7.3 GM/DL (11.6-15.3)
[2017-08-08 22:40] LABS: BICARBONATE 24.2 MEQ/L (21.0-32.0); CREATININE 2.3 MG/DL (0.50-1.00)
[2017-08-09] VITALS (10 sets, daily range): BP systolic 100–140; BP diastolic 45–62; PULSE 52–62; RESP 16–20; TEMP 96.1–97.5; O2SAT 97–100
[2017-08-09] MEDS: PANTOPRAZOLE INJ 80 MG in SODIUM CHLORIDE 0.9% INJ 100 ML IV SCH ×4 (03:00→22:04)
[2017-08-09 03:37] LABS: AUTOMATED NEUTROPHIL # 2.3 TH/MM3 (1.8-7.7); EOSINOPHIL # 0.1 TH/MM3 (0-0.4); EOSINOPHIL % 1.5 % (0.0-4.0); LYMPH % 29.8 % (9.0-44.0); LYMPHOCYTE # 1.3 TH/MM3 (1.0-4.8); MEAN CELL VOLUME 80.2 FL (80.0-100.0); MEAN CORPUSCULAR HEMOGLOBIN 25.8 PG (27.0-34.0); MEAN CORPUSCULAR HGB CONC 32.1 % (32.0-36.0); MEAN PLATELET VOLUME 9.1 FL (7.0-11.0); MONO % 15.1 % (0.0-8.0); MONOCYTE # 0.7 TH/MM3 (0-0.9); NEUT % 52.6 % (16.0-70.0); PLATELET COUNT 109 TH/MM3 (150-450); RED BLOOD COUNT 2.45 MIL/MM3 (4.00-5.30); RED CELL DISTRIBUTION WIDTH 20.2 % (11.6-17.2); WHITE BLOOD COUNT 4.4 TH/MM3 (4.0-11.0)
[2017-08-09 03:40] LABS: HEMATOCRIT 19.7 % (35.0-46.0); HEMOGLOBIN 6.3 GM/DL (11.6-15.3)
[2017-08-09 03:57] LABS: BICARBONATE 22.6 MEQ/L (21.0-32.0); CALCIUM 8.8 MG/DL (8.5-10.1); CREATININE 2.13 MG/DL (0.50-1.00)
[2017-08-09] MEDS ORDERED: FUROSEMIDE 20 MG/2 ML VIAL IV PUSH ONE (04:00)
[2017-08-09] MEDS ORDERED: SODIUM CHLOR 0.9% 250 ML INJ 250 ML IV ONE (04:00)
[2017-08-09] MEDS: FUROSEMIDE 40 MG TAB PO SCH (09:00)
[2017-08-09] MEDS: SODIUM CHLORIDE 0.9% FLUSH 10 ML FLUSH IV FLUSH SCH ×2 (09:29→22:04)
[2017-08-09] MEDS: LISINOPRIL 10 MG TAB PO SCH (09:29)
[2017-08-09] MEDS ORDERED: LIDOCAINE HCL 1% PF 5 ML SYRINGE OTHER ONE (12:00)
[2017-08-09] MEDS ORDERED: PROPOFOL 200 MG/20 ML AMP IV ONE (12:00)
[2017-08-09] MEDS ORDERED: GLYCOPYRROLATE 1 MG/5 ML SYRINGE IV PUSH ONE (12:00)
[2017-08-09] MEDS ORDERED: ePHEDrine/NS 25 MG/5 ML SYRINGE IV ONE (12:00)
[2017-08-09] MEDS ORDERED: PHENYLEPH/NS 1000 MCG/10 ML SYR IV ONE (12:00)
--- NOTE | 2017-08-09 12:23 | HHI.PR ---
Subjective Remarks RN denies any deterioration since last night. Pt reports some further "reddish stool." no n/v. Objective Vital Signs Date Time Temp Pulse Resp B/P (MAP) Pulse Ox O2 Delivery O2 Flow Rate FiO2 08/09/17 11:04 97.2 59 18 123/51 100 08/09/17 10:44 97.4 55 17 111/45 98 08/09/17 08:00 97.3 55 17 112/58 (76) 97 08/09/17 05:42 97.5 52 18 100/47 100 08/09/17 04:00 97.5 53 20 115/53 (73) 98 08/09/17 02:07 59 08/09/17 00:00 97.0 54 20 137/53 (81) 98 08/08/17 20:00 97.7 58 20 140/59 (86) 100 08/08/17 17:39 08/08/17 17:16 97.0 64 20 134/63 99 08/08/17 16:51 97.6 51 22 151/58 100 08/08/17 16:32 97.5 55 18 140/58 (85) 100 Room Air 08/08/17 16:03 97.6 51 22 151/55 08/08/17 14:50 97.7 53 20 132/58 08/08/17 14:29 97.6 55 22 134/69 100 I/O 08/08/17 08/08/17 08/08/17 08/09/17 08/09/17 08/09/17 07:00 15:00 23:00 07:00 15:00 23:00 Intake Total 2200 ml 340 ml 400 ml Balance 2200 ml 340 ml 400 ml Intake Oral 240 ml IV Total 1000 ml 100 ml Packed Cells 800 ml 400 ml Blood Product IV Normal Saline Flush 400 ml # Voids 4 # Bowel Movements 1 4 Result Diagram: 08/09/1724008/09/17240 Objective Remarks Obese abdomen, soft, nontender, nondistended, lying in bed, no acute distress A/P Assessment and Plan Acute blood loss anemia suspected from upper GI bleed - pending EGD/colonoscopy today. Third unit infusing at this time, monitor H&H today and tomorrow morning. - Hold blood thinners. 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
[2017-08-09 18:02] LABS: HEMATOCRIT 24.3 % (35.0-46.0); HEMOGLOBIN 7.9 GM/DL (11.6-15.3)
--- NOTE | 2017-08-09 20:32 | PD.PROCEDR ---
GI Procedure PROCEDURE PERFORMED EGD followed by a colonoscopy INDICATION FOR PROCEDURE GI bleed, abdominal pain PROCEDURE: The procedure, risks and benefits were discussed with Ms. Rob and informed consent was obtained. Anesthesia sedated her with Diprivan. She was placed in the left lateral decubitus position. EGD: The Pentax videoscope was introduced through the oropharynx and advanced to the second portion of the duodenum under direct visualization. Retroflexion was performed in the stomach. FINDINGS: The esophagus this was normal Stomach this was normal The duodenum this was normal Colonoscopy: The Pentax videoscope was introduced through the rectum and advanced to cecum where the ileocecal valve and appendiceal orifice were identified. Retroflexion was performed in the rectum. Colonic prep was poor prep FINDINGS: Colonic withdrawal time greater than 6 minutes. As the scope was slowly withdrawn colonic mucosa was carefully inspected the patient was noted to have fresh blood noted throughout the colon from the transverse colon all the way to the rectum but not so much blood in the ascending colon which tells me there was a recent bleed from the transverse colon or maybe even the descending colon at this point there was no active bleeding the prep was not so good so as to evaluate adequately but the colonic mucosa appeared to be healthy and within normal limits no obvious diverticulosis was seen and retroflexion was unremarkable but rectal examination did reveal large external hemorrhoids ESTIMATED BLOOD LOSS: No bleeding was noted at the time of colonoscopy SPECIMENS REMOVED: None COMPLICATIONS: None IMPRESSION: Normal EGD Incomplete evaluation of the colon No active bleed was seen PLAN: Continue with current supportive care Monitor labs and transfuse as needed If any active bleeding I would pursue a bleeding scan possible IR for embolization and may even contemplate repeat colonoscopy Matt Duran MD Aug 09, 2017 20:32
--- NOTE | 2017-08-09 23:04 | EKG ---
Date Performed: 08/08/2017 Time Performed: 12:04:10 PTAGE: 81 years EKG: SUPRAVENTRICULAR BRADYCARDIA MODERATE ST DEPRESSION ABNORMAL ECG Since the PREVIOUS TRACING , no significant change noted DOCTOR: Olman Adhikari Interpretating Date/Time 08/09/2017 23:02:57
[2017-08-10] VITALS (7 sets, daily range): BP systolic 108–124; BP diastolic 50–55; PULSE 44–58; RESP 17–20; TEMP 97.1–97.8; O2SAT 96–100
[2017-08-10 06:23] LABS: BICARBONATE 22.7 MEQ/L (21.0-32.0); CALCIUM 8.6 MG/DL (8.5-10.1); CREATININE 2.2 MG/DL (0.50-1.00)
[2017-08-10 07:05] LABS: HEMATOCRIT 21.5 % (35.0-46.0); MEAN CELL VOLUME 82.3 FL (80.0-100.0); MEAN CORPUSCULAR HEMOGLOBIN 26.8 PG (27.0-34.0); MEAN CORPUSCULAR HGB CONC 32.5 % (32.0-36.0); MEAN PLATELET VOLUME 8.8 FL (7.0-11.0); PLATELET COUNT 94 TH/MM3 (150-450); RED BLOOD COUNT 2.62 MIL/MM3 (4.00-5.30); RED CELL DISTRIBUTION WIDTH 19.3 % (11.6-17.2); WHITE BLOOD COUNT 4.4 TH/MM3 (4.0-11.0)
[2017-08-10] MEDS: PANTOPRAZOLE INJ 80 MG in SODIUM CHLORIDE 0.9% INJ 100 ML IV SCH ×2 (08:21→19:00)
[2017-08-10] MEDS: SODIUM CHLORIDE 0.9% FLUSH 10 ML FLUSH IV FLUSH SCH ×2 (09:00→22:15)
[2017-08-10] MEDS: FUROSEMIDE 40 MG TAB PO SCH (09:12)
[2017-08-10] MEDS: LISINOPRIL 10 MG TAB PO SCH (09:12)
--- NOTE | 2017-08-10 11:35 | HHI.GIFU ---
Subjective Remarks Pt resting in bed. No active bleeding. (Morenita Byrnes) Objective Vitals I&O Vital Signs Date Time Temp Pulse Resp B/P (MAP) Pulse Ox O2 Delivery O2 Flow Rate FiO2 08/10/17 08:35 98 Nasal Cannula 2.00 08/10/17 08:00 44 08/10/17 08:00 97.1 58 19 115/55 (75) 96 08/10/17 04:00 97.3 52 20 113/53 (73) 100 08/10/17 00:00 97.2 52 20 108/55 (72) 100 08/09/17 20:00 97.1 60 20 121/56 (77) 100 08/09/17 16:00 96.1 62 16 140/62 (88) 100 08/09/17 12:00 97.4 54 16 111/45 (67) 100 I/O 08/09/17 08/09/17 08/09/17 08/10/17 08/10/17 08/10/17 07:00 15:00 23:00 07:00 15:00 23:00 Intake Total 340 ml 1310 ml 310 ml 360 ml 100 ml Output Total 200 ml Balance 340 ml 1310 ml 110 ml 360 ml 100 ml Intake Oral 240 ml 240 ml 360 ml IV Total 100 ml 70 ml 100 ml Packed Cells 800 ml Blood Product IV Normal Saline Flush 10 ml Other 500 ml Output Urine Total 200 ml # Voids 4 1 # Bowel Movements 4 0 0 Laboratory Laboratory Tests Test 08/09/17 16:21 08/10/17 05:40 08/10/17 06:54 Hemoglobin 7.9 7.0 Hematocrit 24.3 21.5 Blood Urea Nitrogen 56 Creatinine 2.20 Random Glucose 83 Calcium Level 8.6 Sodium Level 144 Potassium Level 5.5 Chloride Level 115 Carbon Dioxide Level 22.7 Anion Gap 6 Estimat Glomerular Filtration Rate 21 White Blood Count 4.4 Red Blood Count 2.62 Mean Corpuscular Volume 82.3 Mean Corpuscular Hemoglobin 26.8 Mean Corpuscular Hemoglobin Concent 32.5 Red Cell Distribution Width 19.3 Platelet Count 94 Mean Platelet Volume 8.8 Date/Time Source Procedure Growth Status 08/08/17 12:50 Urine Random Urine Urine Culture - Final 50-100,000 CFU/ML MIXED GRAM POSITIVE... Complete Imaging Last Impressions Chest X-Ray 08/08/17 0000 Signed Impressions: Service Date/Time: Tuesday, August 08, 2017 14:44 - CONCLUSION: 1. Moderate cardiomegaly with vascular congestive changes. 2. No evidence of acute airspace disease. Rico John MD Abdomen/Pelvis CT 08/08/17 0000 Signed Impressions: Service Date/Time: Tuesday, August 08, 2017 13:56 - CONCLUSION: 1. Calcified gallstone. 2. Status post hysterectomy. 3. No evidence of acute process. 4. No evidence of mass or lymphadenopathy. Rico John MD Physical Exam HEENT: PERRL; normocephalic; atraumatic; no jaundice. CHEST: CTA. CARDIAC: RRR + murmur ABDOMEN: Soft, obese, nontender; no hepatosplenomegaly; bowel sounds are present in all four quadrants. EXTREMITIES: No clubbing, cyanosis, + BLE edema SKIN: Normal; no rash; no jaundice. COMMISSARY HELPER: No focal deficits; alert and oriented times three. (Morenita Byrnes CAUSTIC PURIFICATION OPERATOR) Assessment and Plan Plan Assessment: - GIB- reports of melena that started about a week ago that turned into dark red blood in her stool with clots approx 4 days ago. 3-4 episodes a day, last BM while in ER. H/H 5.4/17.3 on admission, 2 U PRBCs ordered. Denies ever having EGD or colonoscopy. Denies history of GIB, NSAIDs, ETOH. Takes full dose ASA daily. - Mild mid abdominal pain, intermittent- CT abdomen and pelvis (08/08) --> Calcified gallstone. Status post hysterectomy. No evidence of acute process. No evidence of mass or lymphadenopathy. - Sinus bradycardia- pt reports her heart rate always runs low - Lymphedema with fluctuating weight- denies recent weight loss - FLOWER- GFR 19 with hyperkalemia- per attneding 08/10/17 - s/p EGD and colonoscopy, EGD was normal and colonoscopy demonstrated poor prep, blood seen but not active bleeding. HH has dropped today. pt still on clears. d/w primary. Plan: repeat colonoscopy tomorrow Obtain consent continue clears GoLytely prep - OK to add crystal light NPO after MN Protonix gtt monitor HH if develops active bleed, get stat bleed scan Transfuse to keep hgb over 8 Pt has been seen and examined by myself and Dr. Duran and this note is written on his behalf (Morenita Byrnes) Physician Comments Seen and examined Agree with above Continue with current supportive care Monitor labs Plan for repeat colonoscopy tomorrow (Matt Duran MD) Morenita Byrnes Aug 10, 2017 11:35 Matt Duran MD Aug 10, 2017 22:02
--- NOTE | 2017-08-10 12:13 | HHI.PR ---
Subjective Remarks RN denies any deterioration since last night. Pt denies having any bloody bowel movements. Denies having any chest pain today or shortness of breath. Objective Vital Signs Date Time Temp Pulse Resp B/P (MAP) Pulse Ox O2 Delivery O2 Flow Rate FiO2 08/10/17 08:35 98 Nasal Cannula 2.00 08/10/17 08:00 44 08/10/17 08:00 97.1 58 19 115/55 (75) 96 08/10/17 04:00 97.3 52 20 113/53 (73) 100 08/10/17 00:00 97.2 52 20 108/55 (72) 100 08/09/17 20:00 97.1 60 20 121/56 (77) 100 08/09/17 16:00 96.1 62 16 140/62 (88) 100 I/O 08/09/17 08/09/17 08/09/17 08/10/17 08/10/17 08/10/17 07:00 15:00 23:00 07:00 15:00 23:00 Intake Total 340 ml 1310 ml 310 ml 360 ml 100 ml Output Total 200 ml Balance 340 ml 1310 ml 110 ml 360 ml 100 ml Intake Oral 240 ml 240 ml 360 ml IV Total 100 ml 70 ml 100 ml Packed Cells 800 ml Blood Product IV Normal Saline Flush 10 ml Other 500 ml Output Urine Total 200 ml # Voids 4 1 # Bowel Movements 4 0 0 Result Diagram: 08/10/17 0654 08/10/17 0540 Objective Remarks Obese abdomen, soft, nontender, nondistended, no acute distress Sitting up in chair, no acute distress A/P Assessment and Plan Acute blood loss anemia suspected from upper GI bleed -EGD was unremarkable, however colonoscopy was nondiagnostic due to stool. Likely will undergo repeat prep for repeat colonoscopy tomorrow especially given that hemoglobin is still dropping. Will arrange for another transfusion. Chest pain upon admission was likely secondary to anemia as opposed to coronary artery disease. Patient no longer having any chest pain. - Hold blood thinners. - continue Protonix drip chronic hyperkalemia - monitor patient was given Kayexalate/calcium gluconate earlier Chronic Lymphedema - lasix HTN -home lisinopril CKD- sees Dr Acosta Cervical cancer- s/p removal Squamous cell of skin on knee- s/p resection no blood thinner at this time, SCDs may be applied Brian Valencia MD Aug 10, 2017 12:13
[2017-08-10] MEDS ORDERED: SODIUM CHLOR 0.9% 250 ML INJ 250 ML IV ONE (12:15)
[2017-08-10] MEDS ORDERED: PEG (High)/E-LYTE SOLN 4000 ML BTL PO ONE (13:00)
[2017-08-11] VITALS (7 sets, daily range): BP systolic 112–151; BP diastolic 53–59; PULSE 50–65; RESP 16–20; TEMP 97.1–97.6; O2SAT 94–100
[2017-08-11 02:35] LABS: HEMOGLOBIN 6.6 GM/DL (11.6-15.3)
[2017-08-11 02:36] LABS: HEMATOCRIT 20.7 % (35.0-46.0)
[2017-08-11] MEDS: PANTOPRAZOLE INJ 80 MG in SODIUM CHLORIDE 0.9% INJ 100 ML IV SCH ×2 (05:21→15:00)
[2017-08-11] MEDS: SODIUM CHLORIDE 0.9% FLUSH 10 ML FLUSH IV FLUSH SCH ×2 (09:00→21:00)
[2017-08-11] MEDS: FUROSEMIDE 40 MG TAB PO SCH (09:05)
[2017-08-11] MEDS: LISINOPRIL 10 MG TAB PO SCH (09:05)
[2017-08-11] MEDS ORDERED: GLYCOPYRROLATE 1 MG/5 ML SYRINGE IV PUSH ONE (12:00)
[2017-08-11] MEDS ORDERED: PROPOFOL 200 MG/20 ML AMP IV ONE (12:00)
[2017-08-11] MEDS ORDERED: PHENYLEPH/NS 1000 MCG/10 ML SYR IV ONE (12:00)
[2017-08-11] MEDS ORDERED: ePHEDrine/NS 25 MG/5 ML SYRINGE IV ONE (12:00)
--- NOTE | 2017-08-11 12:08 | HHI.PR ---
Subjective Remarks RN reports that the patient is having bloody bowel movements since last night. Nursing also reports that the patient's type and cross apparently and thus the second unit of the 2 units that I ordered yesterday is just being administered this morning. Patient's H&H is still dropping. Patient reports having further bowel movements after having the second round of prep yesterday so we anticipate a better picture on colonoscopy today. Objective Vital Signs Date Time Temp Pulse Resp B/P (MAP) Pulse Ox O2 Delivery O2 Flow Rate FiO2 08/11/17 11:53 97.4 50 16 112/54 100 08/11/17 08:00 97.6 55 17 135/58 (83) 97 08/11/17 04:00 97.5 56 18 128/55 (79) 97 08/11/17 00:00 59 18 151/59 (89) 98 08/10/17 20:00 97.2 58 18 124/53 (76) 100 08/10/17 19:42 Nasal Cannula 2.00 08/10/17 16:00 97.8 52 19 111/50 (70) 96 I/O 08/10/17 08/10/17 08/10/17 08/11/17 08/11/17 08/11/17 07:00 15:00 23:00 07:00 15:00 23:00 Intake Total 360 ml 100 ml 1000 ml 50 ml 500 ml Output Total 1000 ml Balance 360 ml 100 ml 0 ml 50 ml 500 ml Intake Oral 360 ml 1000 ml 0 ml 0 ml IV Total 100 ml Packed Cells 400 ml Blood Product IV Normal Saline Flush 50 ml 100 ml Output Urine Total 1000 ml # Voids 1 2 # Bowel Movements 0 0 Result Diagram: 08/11/17 0153 08/10/17 0540 Objective Remarks Obese abdomen, soft, nontender, nondistended, no acute distress in a reclining position Sitting up in chair, no acute distress A/P Assessment and Plan Acute blood loss anemia suspected from upper GI bleed -EGD was unremarkable, however colonoscopy was nondiagnostic due to stool. Likely will undergo repeat prep for repeat colonoscopy tomorrow especially given that hemoglobin is still dropping -Administering fourth unit of blood since admission, recheck H&H in a.m., repeat colonoscopy later today - Hold blood thinners. 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
[2017-08-11] MEDS ORDERED: DO NOT ADM ANY ANTICOAGULANT DRUGS PRN (17:01)
[2017-08-11] MEDS ORDERED: POTASSIUM CHLORIDE 25 MEQ EFFERVESCENT TAB PO SCH (21:00)
--- NOTE | 2017-08-11 21:00 | PD.PROCEDR ---
GI Procedure PROCEDURE PERFORMED Colonoscopy with snare polypectomy INDICATION FOR PROCEDURE Lower GI bleed PROCEDURE: The procedure, risks and benefits were discussed with Patient/POA and informed consent was obtained. Anesthesia sedated Patient with Diprivan. Patient was placed in the left lateral decubitus position. Colonoscopy: The Pentax videoscope was introduced through the rectum and advanced to cecum where the ileocecal valve and appendiceal orifice were identified. Retroflexion was performed in the rectum. Colonic prep was fair FINDINGS: Colonic withdrawal time greater than 6 minutes. As the scope was slowly withdrawn colonic mucosa was carefully inspected the patient was noted to have 5 sessile polyps these were medium in size the first was in the cecum for wearing the proximal transverse colon all were excised using cold snare technique and retrieved further evaluation otherwise colonic examination was unremarkable and within normal limits retroflexion in the rectum did reveal moderate-sized internal hemorrhoids rectal examination otherwise unremarkable as the scope was being advanced in the colon I could see some evidence of recent bleeding in the descending colon but not so much in the transverse and descending colon as was the case 2 days ago so most likely the source of bleeding is left side of the colon but no obvious source was seen and no active bleeding was noted ESTIMATED BLOOD LOSS: None SPECIMENS REMOVED: Colon polyps COMPLICATIONS: None IMPRESSION: Colon polyps Internal and external hemorrhoids PLAN: Await biopsies Continue with current supportive care Monitor labs and transfuse as needed Colonoscopy in 5 years Matt Duran MD Aug 11, 2017 21:00
[2017-08-12] VITALS (7 sets, daily range): BP systolic 110–129; BP diastolic 46–58; PULSE 49–63; RESP 18–21; TEMP 97.1–97.8; O2SAT 96–100
[2017-08-12] MEDS: PANTOPRAZOLE INJ 80 MG in SODIUM CHLORIDE 0.9% INJ 100 ML IV SCH (01:59)
[2017-08-12 08:23] LABS: HEMATOCRIT 26.1 % (35.0-46.0); HEMOGLOBIN 8.5 GM/DL (11.6-15.3); MEAN CELL VOLUME 83.3 FL (80.0-100.0); MEAN CORPUSCULAR HEMOGLOBIN 27.1 PG (27.0-34.0); MEAN CORPUSCULAR HGB CONC 32.6 % (32.0-36.0); MEAN PLATELET VOLUME 9.2 FL (7.0-11.0); PLATELET COUNT 82 TH/MM3 (150-450); RED BLOOD COUNT 3.14 MIL/MM3 (4.00-5.30); RED CELL DISTRIBUTION WIDTH 20.4 % (11.6-17.2); WHITE BLOOD COUNT 4.9 TH/MM3 (4.0-11.0)
[2017-08-12] MEDS: FUROSEMIDE 40 MG TAB PO SCH (08:57)
[2017-08-12] MEDS: LISINOPRIL 10 MG TAB PO SCH (08:57)
--- NOTE | 2017-08-12 10:09 | HHI.PR ---
Subjective Remarks This is a pleasant 81 y/o Female who was admitted with GI bleed, status post two units of PRBCs. Has Morbid Obesity strongly recommended diet and exercise, not yet clear for discharge by GI specialist, no nausea, vomit or diarrhea Hemoglobin improved to 8.5 gr/Dl Objective Vital Signs Date Time Temp Pulse Resp B/P (MAP) Pulse Ox O2 Delivery O2 Flow Rate FiO2 08/12/17 08:00 97.3 57 18 112/53 (72) 96 08/12/17 04:00 56 20 117/52 (73) 96 08/12/17 00:00 97.1 55 20 127/58 (81) 100 08/11/17 22:30 Nasal Cannula 2.00 08/11/17 20:00 97.1 65 20 125/53 (77) 97 08/11/17 17:54 Nasal Cannula 2.00 08/11/17 17:25 66 14 133/53 (79) 99 Room Air 08/11/17 17:15 65 14 103/58 (73) 99 Room Air 08/11/17 16:56 97.6 70 14 128/54 (78) 98 Room Air 08/11/17 12:00 97.4 58 20 112/54 (73) 96 08/11/17 11:53 97.4 50 16 112/54 100 I/O 08/11/17 08/11/17 08/11/17 08/12/17 08/12/17 08/12/17 07:00 15:00 23:00 07:00 15:00 23:00 Intake Total 50 ml 500 ml 1220 ml 480 ml Output Total 1000 ml Balance 50 ml 500 ml 220 ml 480 ml Intake Oral 0 ml 0 ml 120 ml 480 ml Packed Cells 400 ml 400 ml Blood Product IV Normal Saline Flush 50 ml 100 ml Other 700 ml Output Urine Total 1000 ml # Voids 2 1 6 # Bowel Movements 3 0 Result Diagram: 08/12/17 0624 08/10/17 0540 Imaging Last Impressions Chest X-Ray 08/08/17 0000 Signed Impressions: Service Date/Time: Tuesday, August 08, 2017 14:44 - CONCLUSION: 1. Moderate cardiomegaly with vascular congestive changes. 2. No evidence of acute airspace disease. Rico John MD Abdomen/Pelvis CT 08/08/17 0000 Signed Impressions: Service Date/Time: Tuesday, August 08, 2017 13:56 - CONCLUSION: 1. Calcified gallstone. 2. Status post hysterectomy. 3. No evidence of acute process. 4. No evidence of mass or lymphadenopathy. Rico John MD Procedures EGD followed by A Colonoscopy 08/09/17 EGD unremarkable, Colonoscopy Colon polyps found, internal and external hemorrhoids, follow biopsy as outpatient also recommended for Colonoscopy in 5 years by Doctor Matt Duran MD Other Results Laboratory Tests Test 08/08/17 12:06 08/08/17 12:50 08/09/17 02:41 08/10/17 05:40 Prothrombin Time 14.7 SEC Prothromb Time International Ratio 1.5 RATIO Activated Partial Thromboplast Time 33.9 SEC Blood Urea Nitrogen 67 MG/DL 56 MG/DL Creatinine 2.45 MG/DL 2.20 MG/DL Random Glucose 105 MG/DL 83 MG/DL Total Protein 7.9 GM/DL Albumin 2.7 GM/DL Calcium Level 8.9 MG/DL 8.6 MG/DL Alkaline Phosphatase 168 U/L Aspartate Amino Transf (AST/SGOT) 26 U/L Alanine Aminotransferase (ALT/SGPT) 13 U/L Total Bilirubin 0.6 MG/DL Sodium Level 141 MEQ/L 144 MEQ/L Potassium Level 6.1 MEQ/L 5.5 MEQ/L Chloride Level 110 MEQ/L 115 MEQ/L Carbon Dioxide Level 23.1 MEQ/L 22.7 MEQ/L Total Creatine Kinase 36 U/L Troponin I 0.02 NG/ML B-Type Natriuretic Peptide 355 PG/ML Lipase 172 U/L Urine Color YELLOW Urine Turbidity HAZY Urine pH 5.5 Urine Specific [place] 1.011 Urine Protein TRACE mg/dL Urine Glucose (UA) NEG mg/dL Urine Ketones NEG mg/dL Urine Occult Blood LARGE Urine Nitrite NEG Urine Bilirubin NEG Urine Urobilinogen LESS THAN 2.0 MG/DL Urine Leukocyte Esterase NEG Urine RBC 2 /hpf Urine WBC 1 /hpf Urine Squamous Epithelial Cells 2 /hpf Urine Amorphous Sediment OCC Urine Bacteria MOD /hpf Urine Hyaline Casts 12 /lpf Urine Mucus FEW /lpf Microscopic Urinalysis Comment CULTURE INDICATED Neutrophils (%) (Auto) 52.6 % Lymphocytes (%) (Auto) 29.8 % Monocytes (%) (Auto) 15.1 % Eosinophils (%) (Auto) 1.5 % Basophils (%) (Auto) 1.0 % Neutrophils # (Auto) 2.3 TH/MM3 Lymphocytes # (Auto) 1.3 TH/MM3 Monocytes # (Auto) 0.7 TH/MM3 Eosinophils # (Auto) 0.1 TH/MM3 Basophils # (Auto) 0.0 TH/MM3 CBC Comment DIFF FINAL Differential Comment Anion Gap 6 MEQ/L Estimat Glomerular Filtration Rate 21 ML/MIN Test 08/12/17 06:24 White Blood Count 4.9 TH/MM3 Red Blood Count 3.14 MIL/MM3 Hemoglobin 8.5 GM/DL Hematocrit 26.1 % Mean Corpuscular Volume 83.3 FL Mean Corpuscular Hemoglobin 27.1 PG Mean Corpuscular Hemoglobin Concent 32.6 % Red Cell Distribution Width 20.4 % Platelet Count 82 TH/MM3 Mean Platelet Volume 9.2 FL Objective Remarks GENERAL: Morbid Obese patient in no acute distress. SKIN: multiple ecchymosis on all four extremities but increased on both arms. HEAD: Atraumatic. Normocephalic. EYES: Pupils equal and round. No scleral icterus. No injection or drainage. ENT: No nasal bleeding or discharge. Mucous membranes pink and moist. NECK: Trachea midline. No JVD. CARDIOVASCULAR: Regular rate and rhythm. RESPIRATORY: No accessory muscle use. Clear to auscultation. Breath sounds equal bilaterally. GASTROINTESTINAL: Abdomen soft, non-tender, nondistended. Hepatic and splenic margins not palpable. MUSCULOSKELETAL: Lymphedema bilateral. NEUROLOGICAL: Awake and alert. No obvious cranial nerve deficits. PSYCHIATRIC: Appropriate mood and affect; insight and judgment normal. Medications and IVs Current Medications Medications (Trade) Dose Ordered Sig/Meryl Route Start Time Stop Time Status Last Admin (NS Flush) 2 ml UNSCH PRN IV FLUSH 08/08/17 15:15 (NS Flush) 2 ml BID IV FLUSH 08/08/17 21:00 08/10/17 22:15 (Narcan Inj) 0.4 mg UNSCH PRN IV PUSH 08/08/17 15:15 Pantoprazole Sodium 80 mg/ Sodium Chloride 100 ml @ 10 mls/hr Q10H IV 08/08/17 17:00 08/12/17 01:59 (Lasix) 40 mg DAILY PO 08/09/17 09:00 08/12/17 08:57 (Prinivil) 10 mg DAILY PO 08/09/17 09:00 08/12/17 08:57 Miscellaneous Information ALL NURSING DEPARTME... UNSCH PRN .XX 08/11/17 17:01 08/12/17 17:00 A/P Assessment and Plan Acute blood loss anemia suspected from upper GI bleed -EGD followed by A Colonoscopy 08/09/17 EGD unremarkable, Colonoscopy 08/11/17 Colon polyps found, internal and external hemorrhoids, follow biopsy as outpatient also recommended for Colonoscopy in 5 years by Doctor Matt Duran MD -Administering fourth unit of blood since admission, recheck H&H in a.m, on Hold Aspirin, continue PPI drip. Not yet cleared to go home by GI specialist. chronic hyperkalemia Improved. - monitor patient was given Kayexalate/calcium gluconate earlier -Morbid Obesity strongly recommended diet and exercise. Chronic Lymphedema - Lasix HTN low blood pressure reduce dose of Lisinopril to 5 mg daily. CKD- sees Dr Acosta stable CKD IV follow as outpatient. 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 Reji Lockwood MD Aug 12, 2017 10:09
--- NOTE | 2017-08-12 11:35 | HHI.GIFU ---
Subjective Remarks Resting in the bed Currently appears comfortable with no nausea or vomiting No abdominal pain Afebrile (Vale Galan) Objective Vitals I&O Vital Signs Date Time Temp Pulse Resp B/P (MAP) Pulse Ox O2 Delivery O2 Flow Rate FiO2 08/12/17 08:00 97.3 57 18 112/53 (72) 96 08/12/17 04:00 56 20 117/52 (73) 96 08/12/17 00:00 97.1 55 20 127/58 (81) 100 08/11/17 22:30 Nasal Cannula 2.00 08/11/17 20:00 97.1 65 20 125/53 (77) 97 08/11/17 17:54 Nasal Cannula 2.00 08/11/17 17:25 66 14 133/53 (79) 99 Room Air 08/11/17 17:15 65 14 103/58 (73) 99 Room Air 08/11/17 16:56 97.6 70 14 128/54 (78) 98 Room Air 08/11/17 12:00 97.4 58 20 112/54 (73) 96 08/11/17 11:53 97.4 50 16 112/54 100 I/O 08/11/17 08/11/17 08/11/17 08/12/17 08/12/17 08/12/17 07:00 15:00 23:00 07:00 15:00 23:00 Intake Total 50 ml 500 ml 1220 ml 480 ml Output Total 1000 ml Balance 50 ml 500 ml 220 ml 480 ml Intake Oral 0 ml 0 ml 120 ml 480 ml Packed Cells 400 ml 400 ml Blood Product IV Normal Saline Flush 50 ml 100 ml Other 700 ml Output Urine Total 1000 ml # Voids 2 1 6 # Bowel Movements 3 0 Laboratory Laboratory Tests Test 08/12/17 06:24 White Blood Count 4.9 Red Blood Count 3.14 Hemoglobin 8.5 Hematocrit 26.1 Mean Corpuscular Volume 83.3 Mean Corpuscular Hemoglobin 27.1 Mean Corpuscular Hemoglobin Concent 32.6 Red Cell Distribution Width 20.4 Platelet Count 82 Mean Platelet Volume 9.2 Date/Time Source Procedure Growth Status 08/08/17 12:50 Urine Random Urine Urine Culture - Final 50-100,000 CFU/ML MIXED GRAM POSITIVE... Complete Imaging Last Impressions Chest X-Ray 08/08/17 0000 Signed Impressions: Service Date/Time: Tuesday, August 08, 2017 14:44 - CONCLUSION: 1. Moderate cardiomegaly with vascular congestive changes. 2. No evidence of acute airspace disease. Rico John MD Abdomen/Pelvis CT 08/08/17 0000 Signed Impressions: Service Date/Time: Tuesday, August 08, 2017 13:56 - CONCLUSION: 1. Calcified gallstone. 2. Status post hysterectomy. 3. No evidence of acute process. 4. No evidence of mass or lymphadenopathy. Rico John MD Physical Exam HEENT: PERRL; normocephalic; atraumatic; no jaundice. CHEST: Mild diminished breath sounds in her bases CARDIAC: RRR + murmur ABDOMEN: Soft, obese, nontender; bowel sounds are present in all four quadrants. EXTREMITIES: No clubbing, cyanosis, + BLE edema mild SKIN: Normal; no rash; no jaundice. CONCIERGE RECEPTIONIST: No focal deficits; alert and oriented times three. (Vale Galan) Assessment and Plan Plan Assessment: - GIB- reports of melena that started about a week ago that turned into dark red blood in her stool with clots approx 4 days ago. 3-4 episodes a day, last BM while in ER. H/H 5.4/17.3 on admission, 2 U PRBCs ordered. Denies ever having EGD or colonoscopy. Denies history of GIB, NSAIDs, ETOH. Takes full dose ASA daily. - Mild mid abdominal pain, intermittent- CT abdomen and pelvis (08/08) --> Calcified gallstone. Status post hysterectomy. No evidence of acute process. No evidence of mass or lymphadenopathy. - Sinus bradycardia- pt reports her heart rate always runs low - Lymphedema with fluctuating weight- denies recent weight loss - FLOWER- GFR 19 with hyperkalemia- per attneding 08/10/17 - s/p EGD and colonoscopy, EGD was normal and colonoscopy demonstrated poor prep, blood seen but not active bleeding. HH has dropped today. pt still on clears. d/w primary. Colonoscopy 08/11/17 , findings were Colon polyps, Internal and external hemorrhoids 08/12/17, Clear liquids changes to Regular soft. No acuter changes. Appetite improving. Resting today no obvious symptoms of nausea or vomiting. PLAN: Diet Regular soft, Await biopsies Continue with current supportive care Monitor labs and transfuse as needed Colonoscopy in 5 years monitor HH and labs GI will see as needed/Sign off. Can follow as OP. Pt has been seen and examined by myself and Dr. Duran and this note is written on his behalf (Vale Galan) Physician Comments Patient seen and examined Agree with above Continue with current supportive care Monitor labs No evidence of any active bleeding at this point and no source of bleeding was found We will advance diet at this point Not much to add from a GI perspective we will sign off (Matt Duran MD) Vale Galan Aug 12, 2017 11:35 Matt Duran MD Aug 12, 2017 15:44
[2017-08-12 12:50] LABS: BICARBONATE 24.2 MEQ/L (21.0-32.0); CALCIUM 8.4 MG/DL (8.5-10.1); CREATININE 2.19 MG/DL (0.50-1.00)
[2017-08-13] VITALS (8 sets, daily range): BP systolic 108–152; BP diastolic 46–81; PULSE 55–95; RESP 17–20; TEMP 97.4–98.3; O2SAT 95–99
[2017-08-13] MEDS: FUROSEMIDE 40 MG TAB PO SCH (08:51)
[2017-08-13] MEDS: LISINOPRIL 10 MG TAB PO SCH (08:52)
[2017-08-13] MEDS: SODIUM CHLORIDE 0.9% FLUSH 10 ML FLUSH IV FLUSH SCH (08:53)
[2017-08-13] MEDS ORDERED: FAMO1TAB37 PO (10:35)
[2017-08-13] MEDS ORDERED: LISI-519 PO (10:35)
[2017-08-13] MEDS ORDERED: CARA1TAB6 PO (10:35)
--- NOTE | 2017-08-13 10:37 | HHI.FF ---
Face to Face Verification Diagnosis: (1) Hematochezia (2) Severe anemia Physical Therapy Order: Evaluate and Treat, Improve ambulation, Strength and gait training Home Health Nursing Order: Medical education Signs/symptoms of disease process Medication education-adverse effect Nursing assessment with vital signs I have seen patient Funmi Delvalle on 08/13/17. My clinical findings support the need for the requested home health care services because: Ltd mobility - disease progression I certify that my clinical findings support that this patient is homebound because: Unsafe to leave home unassisted Reji Lockwood MD Aug 13, 2017 10:37
[2017-08-13] MEDS ORDERED: FERR150C PO (10:48)
--- NOTE | 2017-08-13 10:52 | HHI.PR ---
Subjective Remarks This is a pleasant 81 y/o Female who was admitted with GI bleed, status post two units of PRBCs. Has Morbid Obesity strongly recommended diet and exercise, not yet clear for discharge by GI specialist, no nausea, vomit or diarrhea Hemoglobin improved to 8.5 gr/Dl 08/13: Stable in her bedroom already recommended by GI for discharge orders given , discussed with Her son in the room they will discuss during the day if they will be able to take care of his Mon with his other brother and let me know, was discussed with health policy manager may need Rehab facility. no nausea, vomit or diarrhea. Objective Vital Signs Date Time Temp Pulse Resp B/P (MAP) Pulse Ox O2 Delivery O2 Flow Rate FiO2 08/13/17 08:00 97.4 60 18 108/46 (66) 99 08/13/17 04:13 98.1 59 18 110/55 (73) 97 08/13/17 00:18 98.3 95 20 113/81 (92) 97 08/12/17 20:00 97.8 63 21 110/46 (67) 96 08/12/17 19:43 49 08/12/17 15:44 97.5 55 19 129/53 (78) 97 08/12/17 12:00 97.3 52 19 120/55 (76) 99 I/O 08/12/17 08/12/17 08/12/17 08/13/17 08/13/17 08/13/17 07:00 15:00 23:00 07:00 15:00 23:00 Intake Total 480 ml 1520 ml 480 ml Output Total 1500 ml 1600 ml Balance 480 ml 20 ml -1120 ml Intake Oral 480 ml 1520 ml 480 ml Output Urine Total 1500 ml 1600 ml # Voids 6 # Bowel Movements 0 0 0 Result Diagram: 08/12/17 0624 08/12/17 1135 Imaging Last Impressions Chest X-Ray 08/08/17 0000 Signed Impressions: Service Date/Time: Tuesday, August 08, 2017 14:44 - CONCLUSION: 1. Moderate cardiomegaly with vascular congestive changes. 2. No evidence of acute airspace disease. Rico John MD Abdomen/Pelvis CT 08/08/17 0000 Signed Impressions: Service Date/Time: Tuesday, August 08, 2017 13:56 - CONCLUSION: 1. Calcified gallstone. 2. Status post hysterectomy. 3. No evidence of acute process. 4. No evidence of mass or lymphadenopathy. Rico John MD Procedures EGD followed by A Colonoscopy 08/09/17 EGD unremarkable, Colonoscopy Colon polyps found, internal and external hemorrhoids, follow biopsy as outpatient also recommended for Colonoscopy in 5 years by Doctor Matt Duran MD Other Results Laboratory Tests Test 08/08/17 12:06 08/08/17 12:50 08/09/17 02:41 08/12/17 06:24 Prothrombin Time 14.7 SEC Prothromb Time International Ratio 1.5 RATIO Activated Partial Thromboplast Time 33.9 SEC Blood Urea Nitrogen 67 MG/DL Creatinine 2.45 MG/DL Random Glucose 105 MG/DL Total Protein 7.9 GM/DL Albumin 2.7 GM/DL Calcium Level 8.9 MG/DL Alkaline Phosphatase 168 U/L Aspartate Amino Transf (AST/SGOT) 26 U/L Alanine Aminotransferase (ALT/SGPT) 13 U/L Total Bilirubin 0.6 MG/DL Sodium Level 141 MEQ/L Potassium Level 6.1 MEQ/L Chloride Level 110 MEQ/L Carbon Dioxide Level 23.1 MEQ/L Total Creatine Kinase 36 U/L Troponin I 0.02 NG/ML B-Type Natriuretic Peptide 355 PG/ML Lipase 172 U/L Urine Color YELLOW Urine Turbidity HAZY Urine pH 5.5 Urine Specific [place] 1.011 Urine Protein TRACE mg/dL Urine Glucose (UA) NEG mg/dL Urine Ketones NEG mg/dL Urine Occult Blood LARGE Urine Nitrite NEG Urine Bilirubin NEG Urine Urobilinogen LESS THAN 2.0 MG/DL Urine Leukocyte Esterase NEG Urine RBC 2 /hpf Urine WBC 1 /hpf Urine Squamous Epithelial Cells 2 /hpf Urine Amorphous Sediment OCC Urine Bacteria MOD /hpf Urine Hyaline Casts 12 /lpf Urine Mucus FEW /lpf Microscopic Urinalysis Comment CULTURE INDICATED Neutrophils (%) (Auto) 52.6 % Lymphocytes (%) (Auto) 29.8 % Monocytes (%) (Auto) 15.1 % Eosinophils (%) (Auto) 1.5 % Basophils (%) (Auto) 1.0 % Neutrophils # (Auto) 2.3 TH/MM3 Lymphocytes # (Auto) 1.3 TH/MM3 Monocytes # (Auto) 0.7 TH/MM3 Eosinophils # (Auto) 0.1 TH/MM3 Basophils # (Auto) 0.0 TH/MM3 CBC Comment DIFF FINAL Differential Comment White Blood Count 4.9 TH/MM3 Red Blood Count 3.14 MIL/MM3 Hemoglobin 8.5 GM/DL Hematocrit 26.1 % Mean Corpuscular Volume 83.3 FL Mean Corpuscular Hemoglobin 27.1 PG Mean Corpuscular Hemoglobin Concent 32.6 % Red Cell Distribution Width 20.4 % Platelet Count 82 TH/MM3 Mean Platelet Volume 9.2 FL Test 08/12/17 11:35 Blood Urea Nitrogen 44 MG/DL Creatinine 2.19 MG/DL Random Glucose 89 MG/DL Calcium Level 8.4 MG/DL Sodium Level 140 MEQ/L Potassium Level 4.5 MEQ/L Chloride Level 109 MEQ/L Carbon Dioxide Level 24.2 MEQ/L Anion Gap 7 MEQ/L Estimat Glomerular Filtration Rate 21 ML/MIN Objective Remarks GENERAL: Morbid Obese patient in no acute distress. SKIN: multiple ecchymosis on all four extremities but increased on both arms. HEAD: Atraumatic. Normocephalic. EYES: Pupils equal and round. No scleral icterus. No injection or drainage. ENT: No nasal bleeding or discharge. Mucous membranes pink and moist. NECK: Trachea midline. No JVD. CARDIOVASCULAR: Regular rate and rhythm. RESPIRATORY: No accessory muscle use. Clear to auscultation. Breath sounds equal bilaterally. GASTROINTESTINAL: Abdomen soft, non-tender, nondistended. Hepatic and splenic margins not palpable. MUSCULOSKELETAL: Lymphedema bilateral. NEUROLOGICAL: Awake and alert. No obvious cranial nerve deficits. PSYCHIATRIC: Appropriate mood and affect; insight and judgment normal. Medications and IVs Current Medications Medications (Trade) Dose Ordered Sig/Meryl Route Start Time Stop Time Status Last Admin (NS Flush) 2 ml UNSCH PRN IV FLUSH 08/08/17 15:15 (NS Flush) 2 ml BID IV FLUSH 08/08/17 21:00 08/13/17 08:53 (Narcan Inj) 0.4 mg UNSCH PRN IV PUSH 08/08/17 15:15 (Lasix) 40 mg DAILY PO 08/09/17 09:00 08/13/17 08:51 (Prinivil) 10 mg DAILY PO 08/09/17 09:00 08/12/17 08:57 A/P Assessment and Plan Acute blood loss anemia suspected from upper GI bleed -EGD followed by A Colonoscopy 08/09/17 EGD unremarkable, Colonoscopy 08/11/17 Colon polyps found, internal and external hemorrhoids, follow biopsy as outpatient also recommended for Colonoscopy in 5 years by Doctor Matt Duran MD -Administering fourth unit of blood since admission, recheck H&H in a.m, on Hold Aspirin, continue PPI drip. Not yet cleared to go home by GI specialist. -chronic hyperkalemia Improved. - monitor patient was given Kayexalate/calcium gluconate earlier -Morbid Obesity strongly recommended diet and exercise. Chronic Lymphedema - Lasix HTN low blood pressure reduce dose of Lisinopril to 5 mg daily. CKD- sees Dr Acosta stable CKD IV follow as outpatient. 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
--- NOTE | 2017-08-13 10:54 | HHI.DS ---
Discharge Summary Admission Date Aug 08, 2017 at 15:04 Discharge Date: Aug 13, 2017 Admitting Diagnosis GI bleed, Anemia, FLOWER, Hyperkalemia (1) Severe anemia ICD Code: D64.9 - Anemia, unspecified Diagnosis: Principal Status: Acute (2) Nonadherence to medication ICD Code: Z91.14 - Patient's other noncompliance with medication regimen Diagnosis: Principal Status: Acute (3) Hematochezia ICD Code: K92.1 - Melena Diagnosis: Principal Status: Acute Procedures EGD followed by A Colonoscopy 08/09/17 EGD unremarkable, Colonoscopy Colon polyps found, internal and external hemorrhoids, follow biopsy as outpatient also recommended for Colonoscopy in 5 years by Doctor Matt Duran MD Brief History - From Admission History from patient, your physician for medication, interview of medical records. Patient stated that for the past 4 days, she has been having chest pains on and off. Reports is associated dizziness although she did not pass out. She did have black stools for 4 days as well. Reports of dyspnea because of this. Denies diarrhea. She states that the black stools and became almost of clots. She reports that because of all this, she finally decided to come to hospital today and called 911 herself. patient's ER nurse at the bedside reported that patient had episode of bright red blood per rectum just about to 3 hours ago while in ER. She denies any prior colonoscopies. Review of systems: Patient reports of nausea the past one week or so. She thought that this was secondary to spironolactone that she was taking. She also thought that she had episodes of black stools about a week ago which may be related to spironolactone and therefore stopped it at that time. She says that she chokes easily this has been going on for a while In the emergency room, her workup reveals hemoglobin of 5.4. CBC/BMP: 08/12/17 0624 08/12/17 1135 Significant Findings Laboratory Tests Test 08/11/17 01:53 08/12/17 06:24 08/12/17 11:35 Hemoglobin 6.6 GM/DL (11.6-15.3) 8.5 GM/DL (11.6-15.3) Hematocrit 20.7 % (35.0-46.0) 26.1 % (35.0-46.0) Red Blood Count 3.14 MIL/MM3 (4.00-5.30) Red Cell Distribution Width 20.4 % (11.6-17.2) Platelet Count 82 TH/MM3 (150-450) Blood Urea Nitrogen 44 MG/DL (7-18) Creatinine 2.19 MG/DL (0.50-1.00) Calcium Level 8.4 MG/DL (8.5-10.1) Chloride Level 109 MEQ/L (98-107) Estimat Glomerular Filtration Rate 21 ML/MIN (>89) Imaging Last Impressions Chest X-Ray 08/08/17 0000 Signed Impressions: Service Date/Time: Tuesday, August 08, 2017 14:44 - CONCLUSION: 1. Moderate cardiomegaly with vascular congestive changes. 2. No evidence of acute airspace disease. Rico John MD Abdomen/Pelvis CT 08/08/17 0000 Signed Impressions: Service Date/Time: Tuesday, August 08, 2017 13:56 - CONCLUSION: 1. Calcified gallstone. 2. Status post hysterectomy. 3. No evidence of acute process. 4. No evidence of mass or lymphadenopathy. Rico John MD PE at Discharge GENERAL: Morbid Obese patient in no acute distress. SKIN: multiple ecchymosis on all four extremities but increased on both arms. HEAD: Atraumatic. Normocephalic. EYES: Pupils equal and round. No scleral icterus. No injection or drainage. ENT: No nasal bleeding or discharge. Mucous membranes pink and moist. NECK: Trachea midline. No JVD. CARDIOVASCULAR: Regular rate and rhythm. RESPIRATORY: No accessory muscle use. Clear to auscultation. Breath sounds equal bilaterally. GASTROINTESTINAL: Abdomen soft, non-tender, nondistended. Hepatic and splenic margins not palpable. MUSCULOSKELETAL: Lymphedema bilateral. NEUROLOGICAL: Awake and alert. No obvious cranial nerve deficits. PSYCHIATRIC: Appropriate mood and affect; insight and judgment normal. Hospital Course This is a pleasant 81 y/o Female who was admitted with GI bleed, status post two units of PRBCs. Has Morbid Obesity strongly recommended diet and exercise, not yet clear for discharge by GI specialist, no nausea, vomit or diarrhea Hemoglobin improved to 8.5 gr/Dl 08/13: Stable in her bedroom already recommended by GI for discharge orders given , discussed with Her son in the room they will discuss during the day if they will be able to take care of his Mon with his other brother and let me know, was discussed with hr manager may need Rehab facility. no nausea, vomit or diarrhea. Assessment and Plan Acute blood loss anemia suspected from upper GI bleed -EGD followed by A Colonoscopy 08/09/17 EGD unremarkable, Colonoscopy 08/11/17 Colon polyps found, internal and external hemorrhoids, follow biopsy as outpatient also recommended for Colonoscopy in 5 years by Doctor Matt Duran MD -Administering fourth unit of blood since admission, recheck H&H in a.m, on Hold Aspirin, continue PPI drip. Not yet cleared to go home by GI specialist. -chronic hyperkalemia Improved. - monitor patient was given Kayexalate/calcium gluconate earlier -Morbid Obesity strongly recommended diet and exercise. Chronic Lymphedema - Lasix HTN low blood pressure reduce dose of Lisinopril to 5 mg daily. CKD- sees Dr Acosta stable CKD IV follow as outpatient. 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
[2017-08-13] MEDS: IRON SUCROSE INJ 100 MG in SODIUM CHLORIDE 0.9% INJ 100 ML IV SCH (15:44)
[2017-08-14] VITALS: PULSE 56
[2017-08-14 00:34] VITALS: BP 152/58; PULSE 66; RESP 20; TEMP 98.4; O2SAT 96
[2017-08-14 04:09] VITALS: BP 134/54; PULSE 60; RESP 20; TEMP 98.2; O2SAT 97
[2017-08-14 08:00] VITALS: BP 134/80; PULSE 57; RESP 19; TEMP 97.8; O2SAT 96
[2017-08-14] MEDS: FUROSEMIDE 40 MG TAB PO SCH (08:49)
[2017-08-14] MEDS: LISINOPRIL 10 MG TAB PO SCH (08:49)
[2017-08-14] MEDS: SODIUM CHLORIDE 0.9% FLUSH 10 ML FLUSH IV FLUSH SCH ×2 (08:50→08:51)
[2017-08-14 09:00] VITALS: O2SAT 96
[2017-08-14 12:00] VITALS: BP 138/53; PULSE 70; RESP 18; TEMP 97.1; O2SAT 97
[2017-08-14] MEDS: IRON SUCROSE INJ 100 MG in SODIUM CHLORIDE 0.9% INJ 100 ML IV SCH (15:22)
== END 2017-08-14 17:58 | DRG 378 ==
LOC: NEPC 11:19 → NEDA 15:04 → N07A 17:06
PROVIDERS: ADMIT Internal Medicine; ATTEND Internal Medicine
PROC: 0DBH8ZX Excision of Cecum, Via Natural or Artificial Opening Endoscopic, Diagnostic (ICD-10-PCS; 2017-08-04)
PROC: 0DBL8ZX Excision of Transverse Colon, Via Natural or Artificial Opening Endoscopic, Diagnostic (ICD-10-PCS; 2017-08-04)
PROC: 30233N1 Transfusion of Nonautologous Red Blood Cells into Peripheral Vein, Percutaneous Approach (ICD-10-PCS; 2017-08-08)
PROC: 0DJ08ZZ Inspection of Upper Intestinal Tract, Via Natural or Artificial Opening Endoscopic (ICD-10-PCS; principal; 2017-08-09 13:41)
PROC: 0DJD8ZZ Inspection of Lower Intestinal Tract, Via Natural or Artificial Opening Endoscopic (ICD-10-PCS; 2017-08-09 13:41)
PROC: 3E033GC Introduction of Other Therapeutic Substance into Peripheral Vein, Percutaneous Approach (ICD-10-PCS; 2017-08-13)
DX: K92.2 Gastrointestinal hemorrhage, unspecified (principal); D62 Acute posthemorrhagic anemia; N17.9 Acute kidney failure, unspecified; E87.5 Hyperkalemia; Z68.43 Body mass index [BMI] 50.0-59.9, adult; E66.01 Morbid (severe) obesity due to excess calories; I89.0 Lymphedema, not elsewhere classified; I12.9 Hypertensive chronic kidney disease with stage 1 through stage 4 chronic kidney disease, or unspecified chronic kidney disease; N18.3 Chronic kidney disease, stage 3 (moderate); K64.4 Residual hemorrhoidal skin tags; K63.5 Polyp of colon; K64.8 Other hemorrhoids; Z91.14 Patient's other noncompliance with medication regimen; Z85.41 Personal history of malignant neoplasm of cervix uteri; Z87.891 Personal history of nicotine dependence
CPT/HCPCS: 36430; 71045; 74176; 76937; 80048; 80053; 81001; 82550; 83690; 83880; 84484; 85014; 85018; 85025; 85027; 85610; 85730; 86850; 86900; 86901; 86920; 87086; 88305; 93005; 94618; 96361; 96374; C9113; J0610; J1756; J1940; J2370; J7030; J7050; J7120; P9016